=== PATIENT | female | born 2000 | race African-American/Black ===

== ENCOUNTER 2023-10-24 06:41 | Emergency (ER) | payer OTHER ==
[~2023-10-24] VITALS: Ht 167.6 cm; Wt 73.0 kg
[2023-10-24 07:28] VITALS: O2SAT 100
[2023-10-24] MEDS: ACETAMINOPHEN 325MG TABLET PO ONE (09:19)
[2023-10-24] MEDS: IBUPROFEN 400MG TABLET PO ONE (09:19)
[2023-10-24] MEDS ORDERED: IBUP-2028 MT (10:24)
[2023-10-24 10:31] VITALS: BP 124/58; PULSE 81; RESP 16; TEMP 98.4
== END 2023-10-24 10:40 | disposition home or self-care (01) ==
LOC: ER 06:41
DX: M79.601 Pain in right arm (principal)
CPT/HCPCS: 73060; 81025; 99283